=== PATIENT | female | born 1980 | race Caucasian/White ===

== ENCOUNTER 2019-07-28 12:36 | Emergency (ER) | payer BC, OTHER ==
[2019-07-28 13:56] VITALS: BP 121/61
--- NOTE | 2019-07-28 14:01 | UC ---
Ear Complaint HPI - HPI Summary HPI Summary: 39-year-old female with body aches and some flulike illness however no fever. She also complains of bilateral ear pain. She does have family members at home with the flu. She is leaving on a work trip in a few days to [place] and would like to be tested for the flu. - History of Current Complaint Chief Complaint: UCEar Stated Complaint: SORE THROAT, FATIGUE (FLU EXPOSURE) Time Seen by Provider: 07/28/19 14:01 Hx Obtained From: Patient Hx Last Menstrual Period: 07/2019 ?: No Onset/Duration: Sudden Onset Severity Initially: Moderate Severity Currently: Moderate Pain Intensity: 4 Aggravating Factors: Nothing Alleviating Factors: Nothing Associated Signs/Symptoms: Positive: URI Symptoms - Allergies/Home Medications Allergies/Adverse Reactions: Allergies Allergy/AdvReac Type Severity Reaction Status Date / Time No Known Allergies Allergy Verified 07/28/19 13:53 Home Medications: Home Medications Norgestimate-Eth Estradiol(NF) [Ortho Tri-Cyclen (NF)] 1 tab PO DAILY 06/03/16 [ History Confirmed 07/28/19] Desvenlafaxine Succinate [Pristiq] 50 mg PO DAILY 07/28/19 [History Confirmed ] PMH/Surg Hx/FS Hx/Imm Hx Previously Healthy: Yes - Surgical History Surgical History: None - Family History Known Family History: Negative: Diabetes - Social History Occupation: Employed Full-time Lives: With Family Alcohol Use: Occasionally Substance Use Type: None Smoking Status (MU): Never Smoked Tobacco - Immunization History Most Recent Influenza Vaccination: not this season Review of Systems All Other Systems Reviewed And Are Negative: Yes Constitutional: Positive: Chills ENT: Positive: Sore Throat - Denies sore throat but feels like her glands are swollen., Ear Ache - Bilateral earache, Nasal Discharge Musculoskeletal: Positive: Myalgia Is Patient Immunocompromised?: No Physical Exam Triage Information Reviewed: Yes Appearance: Well-Appearing, No Pain Distress, Well-Nourished Vital Signs: Initial Vital Signs Temp 98.6 F 07/28/19 13:53 Pulse 64 07/28/19 13:53 Resp 15 07/28/19 13:53 BP 121/61 07/28/19 13:53 Pulse Ox 98 07/28/19 13:53 Vital Signs Reviewed: Yes Eyes: Positive: Conjunctiva Clear ENT: Positive: Pharynx normal, Nasal drainage - Clear nasal coryza, TMs normal, Uvula midline Neck: Positive: Supple, Nontender, No Lymphadenopathy Respiratory: Positive: Lungs clear, Normal breath sounds, No respiratory distress, No accessory muscle use Cardiovascular: Positive: RRR, No Murmur, Pulses Normal, Brisk Capillary Refill Musculoskeletal Exam: Normal Neurological Exam: Normal Psychological Exam: Normal Skin Exam: Normal Ear Complaint Course/Dx - Course Course Of Treatment: Rapid flu test: Negative Patient is comfortable here. - Differential Dx/Diagnosis Provider Diagnosis: Flu-like symptoms Discharge ED - Sign-Out/Discharge Documenting (check all that apply): Patient Departure All imaging exams completed and their final reports reviewed: No Studies - Discharge Plan Condition: Good Disposition: HOME Patient Education Materials: Viral Syndrome (ED) Forms: *Work Release Referrals: Samuel Liu DO [Primary Care Provider] - Additional Instructions: Increase fluids, rest, follow-up with your primary care provider if no improvement in 3 or 4 days. - Billing Disposition and Condition Condition: GOOD Disposition: Home
[2019-07-28 14:30] LABS: Influenza A Molecular Negative (Negative); Influenza B Molecular Negative (Negative)
== END 2019-07-28 14:50 | disposition home or self-care (01) ==
LOC: UCCORT 12:36
DX: J02.9 Acute pharyngitis, unspecified (principal); M79.10 Myalgia, unspecified site; H92.03 Otalgia, bilateral; R09.89 Other specified symptoms and signs involving the circulatory and respiratory systems
CPT/HCPCS: 99211; G0463